=== PATIENT | female | born 2000 | race Hispanic/Latino ===

== ENCOUNTER 2023-10-17 17:59 | Inpatient (IN) | payer MEDICAID, OTHER, SELFPAY ==
[2023-10-17 18:41] VITALS: BMI 38.3
[2023-10-17] MEDS ORDERED: Methylergonovine 0.2 MG/ML VIAL IM PRN (21:19)
[2023-10-17] MEDS ORDERED: Diphenoxylate HCl/Atropine Tablet PO PRN (21:19)
[2023-10-17] MEDS ORDERED: Lidocaine 1% (PF) 30 ML VIAL SC PRN (21:19)
[2023-10-17] MEDS ORDERED: fentaNYL 50 mcg/mL 1 mL Vial SLOW IVP PRN (21:19)
[2023-10-17] MEDS ORDERED: Promethazine HCl 25 MG/ML VIAL IM PRN (21:19)
[2023-10-17] MEDS ORDERED: Ibuprofen 800 MG TAB PO PRN (21:19)
[2023-10-17] MEDS ORDERED: hydrALAZINE 20 MG/ML VIAL SLOW IVP PRN (21:19)
[2023-10-17] MEDS ORDERED: Carboprost 250 MCG/ML AMP IM PRN (21:19)
[2023-10-17] MEDS ORDERED: HYDROcodone/Acetaminophen 5/325 mg Tablet PO PRN (21:19)
[2023-10-17] MEDS ORDERED: Tranexamic Acid 1,000 MG/10 ML VIAL IVP PRN (21:19)
[2023-10-17] MEDS ORDERED: Acetaminophen 500 MG TAB PO PRN (21:19)
[2023-10-17] MEDS ORDERED: Oxytocin 30 units/NS 500 ML 500 ML IV SCH ×2 (21:30)
[2023-10-17 21:37] LABS: Hematocrit 34.8 % (34.9-44.5); Hemoglobin 11.3 g/dL (12.0-15.5); Mean Corpuscular HGB CONC 32.5 g/dL (32.0-36.0); Mean Corpuscular Hemoglobin 30.1 pg (27.0-33.0); Mean Corpuscular Volume 92.6 fL (81.6-98.3); Mean Platelet Volume 10.7 fL (7.4-10.4); Platelet Count 262 10x3/uL (150-450); RBC Distribution Width 13.4 % (11.5-14.5); Red Blood Cell (RBC) Count 3.76 10x6/uL (3.90-5.03)
[2023-10-17] MEDS: Lactated Ringer's 1,000 ML IV SCH (21:50)
[2023-10-17 21:52] LABS: Glucose 87 mg/dL (70-105)
[2023-10-17] MEDS: Misoprostol 100 MCG TAB PO SCH (22:13)
[2023-10-17 22:37] LABS: HBsAg Index 0.18 S/CO (0-0.99); Hep B Surf Ag - L&D Non-Reactive S/CO (NonReactive)
[2023-10-17 22:38] LABS: HIV (1/2) Antibody/Antigen Non-Reactive (NonReactive); HIV 1/2 INDEX 0.09 S/CO (<1.00)
[2023-10-17 22:40] LABS: Syphilis Antibody Nonreactive (Nonreactive); Syphilis Antibody Index 0.08 S/CO (<1.00 Non-Reactive)
[2023-10-18] MEDS: Ondansetron PF 4 MG/2 ML Vial IVP PRN (11:39)
[2023-10-18] MEDS ORDERED: diphenhydrAMINE 50 MG/ML VIAL IVP PRN (14:21)
[2023-10-18] MEDS ORDERED: Acetaminophen 325 MG TAB PO PRN (14:21)
[2023-10-18] MEDS ORDERED: Ondansetron PF 4 MG/2 ML Vial IVP PRN ×2 (14:21→23:02)
[2023-10-18] MEDS ORDERED: Naloxone HCl 0.4 mg/ml Vial IVP PRN ×2 (14:21)
[2023-10-18] MEDS ORDERED: Moisturizing Cream (Eucerin) 113 GM JAR TOP PRN (14:21)
[2023-10-18] MEDS ORDERED: Promethazine HCl 25 MG/ML VIAL IM PRN ×2 (14:21→23:02)
[2023-10-18] MEDS ORDERED: Lactated Ringer's 500 ML IV PRN (14:21)
[2023-10-18] MEDS ORDERED: ePHEDrine Sulfate 50 MG/10 ML VIAL SLOW IVP PRN (14:21)
[2023-10-18] MEDS ORDERED: fentaNYL 2 mcg/Ropivacaine 0.2% Epidural 100 ML CADD EPIDURAL SCH (14:30)
[2023-10-18] MEDS ORDERED: Communication Order-Pharmacy FS SCH (14:30)
[2023-10-18] MEDS: Oxytocin 30 units/NS 500 ML 500 ML IV SCH (20:41)
[2023-10-18] MEDS: Misoprostol 200 MCG TAB PR PRN (20:41)
[2023-10-18] MEDS: fentaNYL/Ropivacaine Epidural 100 ML ONE (21:08)
[2023-10-18] MEDS ORDERED: hydrALAZINE 20 MG/ML VIAL SLOW IVP PRN (23:02)
[2023-10-18] MEDS ORDERED: Bisacodyl 10 MG SUPP PR PRN (23:02)
[2023-10-18] MEDS ORDERED: diphenhydrAMINE 25 MG CAP PO PRN (23:02)
[2023-10-18] MEDS ORDERED: Milk Of Magnesia 30 ML UDCUP PO PRN (23:02)
[2023-10-18] MEDS ORDERED: Lanolin Ointment 7 GM TUBE TOP PRN (23:02)
[2023-10-18] MEDS ORDERED: HYDROcodone/Acetaminophen 5/325 mg Tablet PO PRN (23:02)
[2023-10-18] MEDS ORDERED: Benzocaine-Menthol 82.5 ML CAN TOP PRN (23:02)
[2023-10-19] MEDS: Ibuprofen 800 MG TAB PO SCH ×2 (00:39→08:20)
[2023-10-19] MEDS: Docusate 100 MG CAP PO SCH ×2 (00:39→08:20)
[2023-10-19] MEDS: Boostrix 0.5 ML (Tdap) VIAL (>/=7 yrs of age) IM ONE (02:56)
[2023-10-19] MEDS: Ferrous Sulfate 325 MG TAB PO SCH (07:02)
[2023-10-19] MEDS: Prenatal Vitamin 1 TAB PO SCH (08:20)
[2023-10-20 08:00] VITALS: BP 103/63; TEMP 98
== END 2023-10-20 19:48 | disposition home or self-care (01) | DRG 807 ==
LOC: CSHLD 17:59 → CSHPP 10-18 22:45
PROVIDERS: ADMIT Family Medicine; ATTEND Family Medicine
PROC: 10E0XZZ Delivery of Products of Conception, External Approach (ICD-10-PCS; principal; 2023-10-17)
DX: O24.420 Gestational diabetes mellitus in childbirth, diet controlled (principal); Z37.0 Single live birth; Z3A.39 39 weeks gestation of pregnancy; Z79.82 Long term (current) use of aspirin; O99.214 Obesity complicating childbirth
CPT/HCPCS: 36415; 36416; 51702; 85027; 86780; 86850; 86900; 86901; 87340; 87389; J2405; J2590; J7120

== ENCOUNTER 2024-11-30 23:41 | Emergency (ER) | payer MEDICAID ==
[2024-12-01 00:51] LABS: #Basophils 0.06 10x3/uL (0.0-0.2); #Eosinophils 0.05 10x3/uL (0.0-0.5); #Monocytes 0.45 10x3/uL (0.0-1.1); #Neutrophils 9.59 10x3/uL (1.5-8.4); %Basophils 0.5 % (0.0-2.0); %Eosinophils 0.4 % (0.0-6.0); %Lymphocytes 10.6 % (18.0-47.0); %Monocytes 4.0 % (0.0-10.0); %Neutrophils 84.2 % (40.0-75.0); Hematocrit 37.4 % (34.9-44.5); Hemoglobin 11.8 g/dL (12.0-15.5); Mean Corpuscular Hemoglobin 26.8 pg (27.0-33.0); Mean Corpuscular Volume 85.0 fL (81.6-98.3); Platelet Count 421 10x3/uL (150-450); Red Blood Cell (RBC) Count 4.40 10x6/uL (3.90-5.03); White Blood Cell (WBC) Count 11.39 10x3/uL (3.5-10.5)
[2024-12-01 01:05] LABS: ALT (SGPT) 119 U/L (Less than 34); AST (SGOT) 136 U/L (11-34); Albumin 4.2 g/dL (3.1-4.5); Alkaline Phosphatase 192 U/L (40-110); Anion Gap 14 mmol/L (10-20); BUN (Urea Nitrogen) 10 mg/dL (7.0-18.7); Bilirubin, Total 1.0 mg/dL (0.3-1.2); Calc. Creatinine Clearance 0 mL/min (70-130); Calcium 9.6 mg/dL (7.8-10.44); Carbon Dioxide 24 mmol/L (22-29); Chloride 107 mmol/L (98-107); Globulin 3.4 g/dL (2.4-3.5); Glucose 120 mg/dL (70-105); Lipase 29 U/L (8-78); Potassium 4.2 mmol/L (3.5-5.1); Sodium 141 mmol/L (136-145)
[2024-12-01] MEDS ORDERED: Ketorolac Tromethamine 30 MG (1 mL) VIAL ONE (02:36)
[2024-12-01] MEDS ORDERED: Ondansetron PF 4 MG/2 ML Vial ONE (02:36)
[2024-12-01] MEDS ORDERED: HYDROmorphone 0.5 MG/0.5 ML SYRINGE ONE (04:21)
== END 2024-12-01 14:35 | disposition short-term general hospital (02) ==
LOC: CSHERS 23:41
DX: K80.70 Calculus of gallbladder and bile duct without cholecystitis without obstruction (principal)
CPT/HCPCS: 36415; 76705; 83690; 96374; 96375; J1171; J1885; J2270; J2543